=== PATIENT | female | born 1980 | race Caucasian/White ===

== ENCOUNTER → 2023-05-02 | Outpatient (CLI) | payer OTHER ==
--- NOTE | 2023-05-02 14:01 | USB ---
Reason for Exam: Additional evaluation requested from abnormal screening. Patient History: Menarche at age 13. First Full-Term at age 25. Hormonal Contraceptives, from age 17 until age 35. Risk Values: Mey 5 year model risk: 0.7%. NCI Lifetime model risk: 10.9%. Technique: Method: Targeted. Prior Study Comparison: 04/30/2023 Bilateral MG 3D screening mammo w/cad, [facility]. Findings: The upper outer quadrant of the left breast, the axilla of the left breast and the retroareolar of the left breast were scanned. 2 small cysts are noted at the left 1:00 position 3 cm from the nipple discordant from mammographic findings. These cysts measure 4 mm and 4 mm respectively. Given discordant findings I do recommend further evaluation with MRI. Overall Assessment: Incomplete: need additional imaging evaluation, BI-RAD 0 Management: Diagnostic Breast MRI of both breasts. A clinical breast exam by your physician is recommended on an annual basis and results should be correlated with mammographic findings. This exam should not preclude additional follow-up of suspicious palpable abnormalities. Results were given to the patient verbally at the time of exam. Electronically signed and approved by: Malik Preciado M.D. Radiologis
== END | disposition home or self-care (01) ==
LOC: RADMAMWWP 13:09
PROVIDERS: ATTEND Family Medicine
DX: R92.8 Other abnormal and inconclusive findings on diagnostic imaging of breast (principal)
CPT/HCPCS: 77065; 76642; G0279; 77061

== ENCOUNTER → 2024-09-21 | Outpatient (CLI) | payer BC, OTHER ==
[2024-09-21 20:00] LABS: HCT 38.5 % (37.2-46.3); HGB 12.5 g/dL (12.0-15.0); MCH 28.4 pg (27.0-32.0); MCHC 32.5 g/dL (32.0-37.0); MCV 87.5 FL (80.0-97.0); NRBC Per 100 WBC 0 X 10*3/uL (0.00-0.01); Platelet Count 260 X 10*3/uL (140-440); RBC 4.40 X 10*6/uL (4.10-5.20); RDW 13.5 % (11.5-14.5); WBC 9.31 X 10*3/uL (4.50-10.00)
[2024-09-21 20:34] LABS: ALT 22 U/L (8-44); AST 23 U/L (13-35); Albumin 3.7 g/dL (3.8-4.9); Albumin/Globulin Ratio 2.06 Ratio (1.60-3.17); Alkaline Phosphatase 49 U/L (41-126); Anion Gap 10.10 mmol/L (4.00-12.00); BUN/Creat Ratio 11.89 Ratio (12.00-20.00); Blood Urea Nitrogen 10.7 mg/dL (9.0-27.0); Calcium 8.5 mg/dL (8.7-10.3); Carbon Dioxide 21.9 mmol/L (21.6-31.8); Chloride 109 mmol/L (96-109); Cholesterol 172.00 mg/dL (0.00-200.00); Globulin 1.8 g/dL (1.6-3.3); Glucose 93 mg/dL (70-110); HDL Cholesterol 42.10 mg/dL (40.00-60.00); LDL Cholesterol,Calculated 92.3 mg/dL (0.0-131.0); Potassium 4.0 mmol/L (3.5-5.5); Sodium 141 mmol/L (135-145); Total Protein 5.5 g/dL (6.2-8.2); Triglycerides 188.00 mg/dL (0.00-149.00); VLDL Calculation 37.60 mg/dL (5.00-40.00)
== END | disposition home or self-care (01) ==
LOC: LABWHC1 15:53
PROVIDERS: ATTEND Nurse Practitioner Family
DX: Z13.220 Encounter for screening for lipoid disorders (principal); R73.02 Impaired glucose tolerance (oral); R53.83 Other fatigue; Z83.2 Family history of diseases of the blood and blood-forming organs and certain disorders involving the immune mechanism
CPT/HCPCS: 36415; 80053; 80061; 81241; 83036; 84443; 85027